=== PATIENT | male | born 1965 | race Caucasian/White ===

== ENCOUNTER → 2017-01-04 | Outpatient (CLI) | payer OTHER | END | disposition home or self-care (01) | LOC: RADNMMAIN 10:42 | PROVIDERS: ATTEND Family Medicine | DX: Z53.9 Procedure and treatment not carried out, unspecified reason (principal) ==

== ENCOUNTER → 2017-01-08 | Outpatient (CLI) | payer OTHER ==
[~2017-01-08] MED LIST: REGADENOSON 0.4 MG/5 ML SYRINGE IV ONE
--- NOTE | 2017-01-08 12:32 | NM ---
EXAMINATION TYPE: NM stress lexiscan cardiolite DATE OF EXAM: 01/08/2017 11:40 AM COMPARISON: NONE HISTORY: Chest pain TECHNIQUE: After the intravenous administration of 10.1 mCi Tc 99m Sestamibi - Cardiolite resting SP ECT images acquired 45 minutes post injection. The patient received 0.4mg Lexiscan, 27 mCi Tc 99m Sestamibi - Stress images obtained 40 minutes post injection FINDINGS: Review of stress and rest SPECT images demonstrates no distinct perfusion abnormality. Gated analysi s shows normal wall motion with an estimated left ventricular ejection fraction of 65 %. IMPRESSION: No scintigraphic evidence for reversible ischemia.
--- NOTE | 2017-01-11 08:49 | EST ---
DATE OF SERVICE: 01/08/2017 AGE: 51Y SEX: M HT: 5'10" WT: 200 lbs. Lexiscan Cardiolite Stress Test *Heart Rate Blood Pressure *Rest: 90 Rest: 151/107 * *Max. Achieved: 105 Maximum BP: 151/107 85% PMHR: 142 100% PMHR: 167 *METS: - INDICATIONS: Fatigue, shortness of breath, vertigo. MEDICATIONS: Simvastatin, lisinopril. Mr. Renee is a 51-year-old gentleman being evaluated for symptoms of chest pain and hypertension and hypercholesterolemia. Baseline EKG showed a sinus rhythm with normal [place] interval and QRS duration. A standard dose of Lexiscan was infused. EKGs did not reveal any acute changes. FINAL IMPRESSION: 1. Negative Lexiscan stress test. 2. Report on the nuclear images to be given by the radiologist.
== END | disposition home or self-care (01) ==
LOC: RADNMMAIN 08:18
PROVIDERS: ATTEND Family Medicine
DX: I72.0 Aneurysm of carotid artery (principal); R53.83 Other fatigue; R06.02 Shortness of breath
CPT/HCPCS: 93017; 78452; A9500; J2785

== ENCOUNTER → 2018-09-23 | Outpatient (CLI) | payer OTHER ==
--- NOTE | 2018-09-23 12:06 | XR ---
Chest x-ray with left RIBS HISTORY: Chest pain, Frontal view of the chest and 4 views of the left ribs are submitted. Correlation to prior RIBS dated 04/12/2011 Chest x-ray is stable. No pneumothorax or pleural effusion. Heart size likely stable. Left sided rib fractures at the sixth and seventh, eighth ribs posterior laterally are again noted. IMPRESSION: Stable left-sided rib fractures. Bone scan may be of benefit.
== END ==
LOC: RADXRYALE 11:28
PROVIDERS: ATTEND Family Medicine
DX: S22.42XA Multiple fractures of ribs, left side, initial encounter for closed fracture (principal)

== ENCOUNTER → 2020-11-14 | Outpatient (CLI) | payer OTHER ==
--- NOTE | 2020-11-15 07:04 | US ---
EXAMINATION TYPE: US scrotum with doppler. Grayscale and color Doppler Duplex imaging performed of danielle shultz scrotum. DATE OF EXAM: 11/14/2020 COMPARISON: NONE CLINICAL HISTORY: N50.811 right testicular pain, N44.00 Torsion of testis. sharp right sided pain tod ay, no injury, mild swelling, gross hematuria EXAM MEASUREMENTS: TESTICLES: Right Testicle: 4.0 x 2.9 x 2.4 cm Left Testicle: 4.9 x 3.5 x 2.5 cm EPIDIDYMIS HEAD: Right Epididymis: 1.6 cm, tail of right epi seen in bilateral images at the end, appears hypervascul ar and inflamed Left Epididymis: 0.5 cm Doppler performed to assess for testicular vascularity; good bilateral color flow and waveforms are s een. There is no evidence of testicular torsion. Presence of hydroceles: mild bilaterally Presence of varicoceles: no IMPRESSION: 1. Correlate for right epididymitis. Follow to resolution to exclude other etiologies. 2. Bilateral small hydroceles.
== END | disposition home or self-care (01) ==
LOC: RADUSWWP 16:09
PROVIDERS: ATTEND Family Medicine
DX: N43.3 Hydrocele, unspecified (principal)
CPT/HCPCS: 76870; 93975

== ENCOUNTER 2021-05-31 09:24 | Emergency (ER) | payer OTHER ==
[2021-05-31 09:32] VITALS: RESP 18; TEMP 98.1
[2021-05-31 09:40] LABS: Glucose,Whole Blood 127 mg/dL (75-99)
--- NOTE | 2021-05-31 09:47 | ED ---
General Adult HPI - General Chief complaint: Neuro Symptoms/Deficit Stated complaint: Vertigo/Nausea Time Seen by Provider: 05/31/21 09:36 Source: patient, RN notes reviewed Mode of arrival: wheelchair Limitations: physical limitation - History of Present Illness Initial comments: Patient is a pleasant 55-year-old male presenting to the emergency department with concerns for dizziness. Onset of symptoms was 3:30 AM yesterday, approximately 30 hours ago. Patient states he was rubbing his eyes and felt a pop between his nose. Patient states he did have a headache following this. Headache was somewhat severe but not 10/10. Today headache is very mild. Patient has had difficulty with dizziness since onset of symptoms. Patient states he did have a spinning type sensation yesterday. Patient states today he is more difficult to focus on things. Patient states he is having some difficulty with walking however has discovered if he does not focus on things far away that he can walk okay. Patient states he did have some difficulty at home with finger-nose test. With testing and emergency department patient states this has improved. With eye evaluation patient and family do agree that his eyes appear abnormal. Family states patient did have some minimal slurred speech yesterday however patient does not recall this. No history of similar symptoms previously. Patient reportedly came to the emergency department yesterday however was never seen as a patient or triaged. - Related Data Home Medications Medication Instructions Recorded Confirmed Losartan Potassium 50 mg PO DAILY 05/31/21 05/31/21 Simvastatin 10 mg PO DAILY 05/31/21 05/31/21 Allergies Allergy/AdvReac Type Severity Reaction Status Date / Time No Known Allergies Allergy Verified 05/31/21 11:01 Review of Systems ROS Statement: Those systems with pertinent positive or pertinent negative responses have been documented in the HPI. ROS Other: All systems not noted in ROS Statement are negative. Constitutional: Denies: fever Eyes: Reports: as per HPI. Denies: eye pain ENT: Denies: ear pain Respiratory: Denies: cough Cardiovascular: Denies: chest pain Endocrine: Denies: fatigue Gastrointestinal: Denies: abdominal pain Genitourinary: Denies: dysuria Musculoskeletal: Denies: back pain Neurological: Reports: as per HPI, headache, vertigo Past Medical History Past Medical History: Hyperlipidemia, Hypertension Additional Past Medical History / Comment(s): aneurysm - carotid History of Any Multi-Drug Resistant Organisms: None Reported Past Surgical History: Hernia Repair Past Psychological History: No Psychological Hx Reported Smoking Status: Never smoker Past Alcohol Use History: Occasional Past Drug Use History: None Reported General Exam Limitations: no limitations General appearance: alert, in no apparent distress Head exam: Present: atraumatic, normocephalic Eye exam: Present: normal appearance, PERRL, EOMI (Patient is noticed to have disconjugate gaze intermittently and minimally during evaluation.). Absent: nystagmus ENT exam: Present: normal oropharynx Neck exam: Present: normal inspection Respiratory exam: Present: normal lung sounds bilaterally Cardiovascular Exam: Present: regular rate, normal rhythm GI/Abdominal exam: Present: soft. Absent: tenderness Extremities exam: Present: normal inspection Neurological exam: Present: alert, oriented X3, CN II-XII intact (Except occasional disconjugate gaze). Absent: motor sensory deficit Expanded Neurological exam: Present: protecting the airway Speech: Present: fluid speech Cerebellar function: Finger to Nose: Normal Sensory exam: Upper Extremity Light Touch: Normal, Lower Extremity Light Touch: Normal Motor strength exam: RUE: 5, LUE: 5, RLE: 5, LLE: 5 Eye Response: (4) open spontaneously Motor Response: (6) obeys commands Verbal Response: (5) oriented Psychiatric exam: Present: normal affect, normal mood Skin exam: Present: normal color Course Vital Signs 05/31/21 05/31/21 05/31/21 09:28 10:16 10:52 Temperature 98.1 F Pulse Rate 85 Respiratory 18 Rate Blood Pressure 193/104 174/108 160/102 O2 Sat by Pulse 95 Oximetry 05/31/21 05/31/21 11:02 11:15 Temperature Pulse Rate 90 80 Respiratory 18 18 Rate Blood Pressure 145/99 135/94 O2 Sat by Pulse 99 96 Oximetry - Reevaluation(s) Reevaluation #1: 05/31/21 10:18 Call from radiologist with concern for subarachnoid bleed. Repeat blood pressure 174/108. Cardene drip will be started. Neuro interventional list has been paged. 05/31/21 10:42 Case was discussed with Dr. Petersen, who will review CTA and call back. 05/31/21 10:48 Patient reevaluated and unchanged. Patient and family updated on results and plan this point. 05/31/21 11:23 Case again discussed with Dr. Petersen who does not see obvious aneurysm. He does have some concern for AV malformation. He will accept patient as transfer to [facility]. He will call to set up arrangements. EKG Findings - EKG Comments: EKG Findings:: Normal sinus rhythm with a rate of 75. MT 166. QRS 108. QT 382. QTC or 26. Normal axis. Normal QRS. No acute ST change. Medical Decision Making - Lab Data Result diagrams: 05/31/21 09:48 05/31/21 09:48 Lab Results 05/31/21 05/31/21 05/31/21 Range/Units 09:39 09:48 09:48 WBC 15.0 H (3.8-10.6) k/uL RBC 5.06 (4.30-5.90) m/uL Hgb 16.4 (13.0-17.5) gm/dL Hct 45.6 (39.0-53.0) % MCV 90.1 (80.0-100.0) fL MCH 32.4 (25.0-35.0) pg MCHC 36.0 (31.0-37.0) g/dL RDW 12.5 (11.5-15.5) % Plt Count 171 (150-450) k/uL MPV 8.6 Neutrophils % 83 % Lymphocytes % 10 % Monocytes % 5 % Eosinophils % 1 % Basophils % 0 % Neutrophils # 12.5 H (1.3-7.7) k/uL Lymphocytes # 1.5 (1.0-4.8) k/uL Monocytes # 0.7 (0-1.0) k/uL Eosinophils # 0.2 (0-0.7) k/uL Basophils # 0.0 (0-0.2) k/uL PT 10.5 (9.0-12.0) sec INR 1.0 (<1.2) APTT 23.2 (22.0-30.0) sec Sodium (137-145) mmol/L Potassium (3.5-5.1) mmol/L Chloride (98-107) mmol/L Carbon Dioxide (22-30) mmol/L Anion Gap mmol/L BUN (9-20) mg/dL Creatinine (0.66-1.25) mg/dL Est GFR (CKD-EPI)AfAm (>60 ml/min/1.73 sqM) Est GFR (CKD-EPI)NonAf (>60 ml/min/1.73 sqM) Glucose (74-99) mg/dL POC Glucose (mg/dL) 127 H (75-99) mg/dL POC Glu Stretch Machine Operator ID Felicitasa, II, [place] Calcium (8.4-10.2) mg/dL Total Bilirubin (0.2-1.3) mg/dL AST (17-59) U/L ALT (4-49) U/L Alkaline Phosphatase (38-126) U/L Troponin I (0.000-0.034) ng/mL Total Protein (6.3-8.2) g/dL Albumin (3.5-5.0) g/dL 05/31/21 05/31/21 Range/Units 09:48 09:48 WBC (3.8-10.6) k/uL RBC (4.30-5.90) m/uL Hgb (13.0-17.5) gm/dL Hct (39.0-53.0) % MCV (80.0-100.0) fL MCH (25.0-35.0) pg MCHC (31.0-37.0) g/dL RDW (11.5-15.5) % Plt Count (150-450) k/uL MPV Neutrophils % % Lymphocytes % % Monocytes % % Eosinophils % % Basophils % % Neutrophils # (1.3-7.7) k/uL Lymphocytes # (1.0-4.8) k/uL Monocytes # (0-1.0) k/uL Eosinophils # (0-0.7) k/uL Basophils # (0-0.2) k/uL PT (9.0-12.0) sec INR (<1.2) APTT (22.0-30.0) sec Sodium 135 L (137-145) mmol/L Potassium 3.9 (3.5-5.1) mmol/L Chloride 99 (98-107) mmol/L Carbon Dioxide 26 (22-30) mmol/L Anion Gap 10 mmol/L BUN 11 (9-20) mg/dL Creatinine 0.66 (0.66-1.25) mg/dL Est GFR (CKD-EPI)AfAm >90 (>60 ml/min/1.73 sqM) Est GFR (CKD-EPI)NonAf >90 (>60 ml/min/1.73 sqM) Glucose 135 H (74-99) mg/dL POC Glucose (mg/dL) (75-99) mg/dL POC Glu Stretch Machine Operator ID Calcium 9.6 (8.4-10.2) mg/dL Total Bilirubin 1.2 (0.2-1.3) mg/dL AST 28 (17-59) U/L ALT 24 (4-49) U/L Alkaline Phosphatase 85 (38-126) U/L Troponin I <0.012 (0.000-0.034) ng/mL Total Protein 7.9 (6.3-8.2) g/dL Albumin 4.6 (3.5-5.0) g/dL - Radiology Data Radiology results: report reviewed (CT angiogram is indeterminate for aneurysm, vascular malformation, active hemorrhage.), image reviewed (Computed tomography scan of the brain shows subarachnoid hemorrhages discussed with radiologist.) Critical Care Time Critical Care Time: Yes Total Critical Care Time: 41 Disposition Clinical Impression: Subarachnoid hemorrhage Disposition: OTHER INSTITUTION NOT DEFINED Condition: Critical Is patient prescribed a controlled substance at d/c from ED?: No Referrals: Berto Torres DO [Primary Care Provider] - 1-2 days Time of Disposition: 11:23 - Out of Hospital Transfer - Req. Specs Out of Hospital Transfer - Requested Specifics: Neurological ICU
[2021-05-31 10:00] LABS: Basophils % (A) 0 %; Eosinophils # (A) 0.2 k/uL (0-0.7); Eosinophils % (A) 1 %; HCT 45.6 % (39.0-53.0); HGB 16.4 gm/dL (13.0-17.5); Lymphocytes # (A) 1.5 k/uL (1.0-4.8); Lymphocytes % (A) 10 %; MCH 32.4 pg (25.0-35.0); MCV 90.1 fL (80.0-100.0); Mean Platelet Volume 8.6; Monocytes # (A) 0.7 k/uL (0-1.0); Monocytes % (A) 5 %; Neutrophils # (A) 12.5 k/uL (1.3-7.7); Neutrophils % (A) 83 %; Platelet Count 171 k/uL (150-450); RBC 5.06 m/uL (4.30-5.90); RDW 12.5 % (11.5-15.5)
[2021-05-31 10:11] LABS: ALT 24 U/L (4-49); AST 28 U/L (17-59); African American GFR (CKD) >90 (>60 ml/min/1.73 sqM); Albumin 4.6 g/dL (3.5-5.0); Alkaline Phosphatase 85 U/L (38-126); Anion Gap 10 mmol/L; Blood Urea Nitrogen 11 mg/dL (9-20); Calcium 9.6 mg/dL (8.4-10.2); Carbon Dioxide 26 mmol/L (22-30); Chloride 99 mmol/L (98-107); Glucose 135 mg/dL (74-99); Non-African American GFR(CKD) >90 (>60 ml/min/1.73 sqM); Potassium 3.9 mmol/L (3.5-5.1); Sodium 135 mmol/L (137-145); Total Bilirubin 1.2 mg/dL (0.2-1.3); Total Protein 7.9 g/dL (6.3-8.2)
[2021-05-31 10:21] LABS: Partial Thromboplastin Time 23.2 sec (22.0-30.0); Prothrombin Time 10.5 sec (9.0-12.0)
--- NOTE | 2021-05-31 10:22 | CT ---
EXAMINATION TYPE: CT brain wo con DATE OF EXAM: 05/31/2021 COMPARISON: None HISTORY: vertigo, history of brain aneurysm CT DLP: 1100 mGycm Automated exposure control for dose reduction was used. Helical imaging through the brain. FINDINGS: There is intraventricular blood present in the lateral ventricles, third ventricle, fourth ventricle. There is mild hydrocephalus present. Calvarium is intact. There is likely edema within the posterior fossa at the level of the cerebellar hemispheres adjacent to the fourth ventricle likely due to loca l mass effect, possible underlying hematoma. IMPRESSION: OBSTRUCTIVE HYDROCEPHALUS, SUBARACHNOID HEMORRHAGE. RESULTS RELAYED TO DR. HANEY TELEPHONICALLY AT TH E TIME OF INTERPRETATION.
[2021-05-31] MEDS ORDERED: levETIRAcetam IV 1,000 MG in SALINE 1 100ML.BAG IVPB STA (10:29)
--- NOTE | 2021-05-31 10:59 | CT ---
EXAMINATION TYPE: CT angio head neck DATE OF EXAM: 05/31/2021 HISTORY: vertigo, history of aneurysm COMPARISON: CT brain same date CT DLP: 705.7 mGycm. Automated Exposure Control for Dose Reduction was Utilized. TECHNIQUE: CTA scan of the neck and brain is performed with IV Contrast, patient injected with 65 mL of Isovue 370, axial images are obtained, coronal and sagittal reformatted images are reviewed. 3D r econstructed images are created on an independent workstation and reviewed. FINDINGS: Carotid/Vascular Structures: Tortuous internal carotid arteries are present prior to entering the sku ll, loops are present bilaterally. Common carotid, internal and external carotid, transverse aorta, l eft and right subclavian, innominate artery, left and right vertebral arteries are patent, right vert ebral artery is dominant. No evident carotid stenosis. Within the brain there is no evident dissection, embolus, or stenosis. At the level of the basilar ti p there is a somewhat bulbous appearance present. Distal posterior inferior cerebellar artery on the left shows somewhat heterogeneous appearance distally, axillary image #9 and 8 at the level of the fo urth ventricle, question of focal outpouching on axial image #11 Other: IMPRESSION: Findings indeterminate on CT angiogram, direct digital subtraction angiography may show i mproved resolution at the level of the basilar artery tip, posterior inferior cerebellar artery on th e left, difficult to exclude aneurysm, vascular malformation, active hemorrhage. NASCET criteria was used in interpretation of this exam?
[2021-05-31] MEDS ORDERED: niCARdipine 20 MG in SODIUM CHLORIDE 0.9% 192 ML IV SCH (11:00)
--- NOTE | 2021-05-31 11:48 | XR ---
EXAMINATION TYPE: XR chest 1V portable DATE OF EXAM: 05/31/2021 COMPARISON: Chest x-ray 09/23/2018 HISTORY: Dizziness, altered mental status TECHNIQUE: Single frontal view of the chest is obtained. FINDINGS: There is no focal air space opacity, pleural effusion, or pneumothorax seen. The cardiac silhouette size is within normal limits. Mild elevation of the right hemidiaphragm. The osseous stru ctures are showing old left-sided rib fractures with some local pleural thickening, similar findings seen on prior exam. IMPRESSION: No acute process. Exam is stable.
[2021-05-31 12:23] VITALS: BP 130/75; PULSE 73
[2021-05-31] MEDS ORDERED: ONDANSETRON 4 MG/2 ML VIAL IVP STA (12:26)
== END 2021-05-31 12:33 | disposition other institution (70) ==
LOC: EC 09:24
DX: I60.9 Nontraumatic subarachnoid hemorrhage, unspecified (principal); E78.5 Hyperlipidemia, unspecified; I10 Essential (primary) hypertension; Z79.899 Other long term (current) drug therapy
CPT/HCPCS: 36415; 93005; 80053; 84484; 85025; 85610; 85730; 71045; 70496; 70450; 70498; 99291; 96365; 96368; 96375; J2405; J1953; Q9967